=== PATIENT | female | born 1955 | race Caucasian/White ===

== ENCOUNTER 2017-05-10 16:48 | Outpatient (CLI) | payer OTHER | END 2017-05-10 18:37 | disposition home or self-care (01) | LOC: LAB 16:48 | DX: K64.2 Third degree hemorrhoids (principal); K92.2 Gastrointestinal hemorrhage, unspecified ==

== ENCOUNTER 2017-05-10 16:54 | Outpatient (CLI) | payer OTHER | END 2017-05-10 18:35 | disposition home or self-care (01) | LOC: RAD 16:54 | DX: K64.2 Third degree hemorrhoids (principal); K92.2 Gastrointestinal hemorrhage, unspecified ==

== ENCOUNTER → 2017-05-17 | Day surgery (SDC) | payer OTHER | END | disposition home or self-care (01) | LOC: CIR.AMB 07:17 | DX: K64.8 Other hemorrhoids (principal) ==